=== PATIENT | male | born 1975 | race Caucasian/White ===

== ENCOUNTER 2020-09-05 11:40 | Emergency (ER) | payer OTHER ==
--- NOTE | 2020-09-05 12:34 | CT ---
Exam: Head CT without contrast HISTORY: Hit head at work. Pain. Trauma. COMPARISON: none FINDINGS: Hemorrhage: No intraparenchymal hemorrhage or extra-axial hematoma. Brain parenchyma: Cortical vaca-white matter differentiation is preserved. No mass effect or midline shift. Basilar cisterns are patent. Ventricular system: Ventricles and sulci are patent and symmetric. Calvarium: Intact. Sinuses and mastoid air cells: Bilateral ethmoidal mucosal thickening. Scalp: Anterior scalp hematoma, near the vertex. IMPRESSION: No intracranial post traumatic sequelae.
--- NOTE | 2020-09-05 12:35 | CT ---
CT Cervical Spine WO Con Indication: Hit in head at work with neck pain COMPARISON: None. FINDINGS: Spinal alignment: No acute malalignment. Craniocervical junction: Within normal limits. Fracture: None. Vertebral body heights: Maintained. Prevertebral soft tissues:Normal appearing. Cervical spine degenerative change: There is mild multilevel disc degenerative and facet osteoarthrit ic change. Lung apices: Clear. IMPRESSION: No acute osseous abnormality.
[2020-09-05] MEDS ORDERED: Boostrix 0.5 ML (Tdap) VIAL ONE (13:09)
== END 2020-09-05 13:33 | disposition home or self-care (01) ==
LOC: ERS 11:40
DX: S00.01XA Abrasion of scalp, initial encounter (principal); Z23 Encounter for immunization; W22.8XXA Striking against or struck by other objects, initial encounter
CPT/HCPCS: 70450; 72125; 90471; 90715